=== PATIENT | female | born 1990 | race Caucasian/White ===

== ENCOUNTER 2018-06-16 12:36 | Emergency (ER) | payer SELFPAY ==
[~2018-06-16] VITALS: Ht 165.1 cm; Wt 67.7 kg
[2018-06-16 12:42] VITALS: Ht 165.1 cm; Wt 67.7 kg
[2018-06-16] MEDS ORDERED: IBUPROFEN600 MG PO (12:44)
[2018-06-16] MEDS ORDERED: KEFLEX500 MG PO (14:40)
[2018-06-16 15:00] VITALS: BP 104/60
== END 2018-06-16 15:00 | disposition home or self-care (01) ==
LOC: D.ER 12:36
DX: S61.411A Laceration without foreign body of right hand, initial encounter (principal); W26.0XXA Contact with knife, initial encounter; Y93.89 Activity, other specified; Y92.019 Unspecified place in single-family (private) house as the place of occurrence of the external cause